=== PATIENT | male | born 1940 | race African-American/Black ===

== ENCOUNTER 2024-10-28 00:06 | Emergency (ER) | payer OTHER ==
[2024-10-28 00:32] VITALS: BP 106/67; PULSE 90; RESP 18; BMI 24.6
[2024-10-28] MEDS ORDERED: LIDOCAINE 5% TOPICAL PATCH ONE (02:22)
[2024-10-28] MEDS: LIDOCAINE 5% TOPICAL PATCH TP ONE (02:31)
[2024-10-28] MEDS ORDERED: LIDOCAINE PATCH REMOVAL MC ONE (14:00)
== END 2024-10-28 04:06 | disposition home or self-care (01) ==
LOC: JER 00:06
DX: M54.2 Cervicalgia (principal); W06.XXXA Fall from bed, initial encounter
CPT/HCPCS: 70450-TC; 72125-TC; 99284-25

== ENCOUNTER 2024-11-04 14:09 | Inpatient (IN) | payer OTHER ==
[2024-11-04 16:35] LABS: EPI CELLS 2 /uL (0-25.1); HYALINE CASTS 0 /uL (0-3.1); PH,URINE 5.5 (5.0-8.0); URINE APPEARANCE CLEAR; URINE BACTERIA >9,000 /uL (0-1359); URINE BILIRUBIN NEGATIVE (NEGATIVE); URINE COLOR YELLOW; URINE GLUCOSE (UA) NEGATIVE (NEGATIVE); URINE KETONE TRACE (NEGATIVE); URINE LEUK ESTERASE 1+ (NEGATIVE); URINE NITRITE NEGATIVE (NEGATIVE); URINE PROTEIN TRACE (NEGATIVE); URINE RBC 5 /uL (0-23.9); URINE UROBILINOGEN 0.2 mg/dL (0.2-1.0); URINE WBC 68 /uL (0-25.8)
[2024-11-04 17:18] LABS: POTASSIUM 5.2 mmol/L (3.5-5.1)
[2024-11-04 17:19] LABS: BLOOD UREA NITROGEN 27.9 mg/dL (7-18); CALCIUM 10.2 mg/dL (8.5-10.1)
[2024-11-04 17:20] LABS: ALBUMIN 2.7 g/dl (3.4-5.0)
[2024-11-04 17:22] LABS: CREATININE 1.1 mg/dL (0.55-1.3)
[2024-11-04 17:24] LABS: BILIRUBIN,TOTAL 0.4 mg/dL (0.2-1); TOT PROT 7.3 g/dl (6.4-8.2)
[2024-11-04] MEDS ORDERED: ACETAMINOPHEN INJECTION 100 ML ONE (17:28)
[2024-11-04] MEDS ORDERED: PIPERACILLIN/TAZOB 3.375 GM 3.375 GM/50 ML BAG IVPB ONE (17:28)
[2024-11-04 17:32] LABS: HEMATOCRIT 30.1 % (40.1-51.0); HEMOGLOBIN 9.2 g/dL (13.7-17.5); MCHC 30.6 g/dl (32.3-36.5); MEAN CELL VOLUME 77.6 fl (79.0-92.2); MEAN PLT VOLUME 8.9 fl (9.4-12.4); PLATELET COUNT 382 x10^3/uL (163-337); RDW 19.3 % (12.6-16.6)
[2024-11-04] MEDS: ACETAMINOPHEN 1000 MG/100 ML BAG IVPB ONE (17:33)
[2024-11-04] MEDS: SODIUM CHLORIDE 0.9% 500 ML INFUS.BAG IV ONE (17:33)
[2024-11-04] MEDS ORDERED: METOPROLOL TARTRATE 5 MG/5 ML VIAL ONE (17:36)
[2024-11-04] MEDS: PIPERACILLIN/TAZOB 3.375 GM 3.375 GM in DEXTROSE 5%-WATER - 50 ML IVPB ONE (17:43)
[2024-11-04] MEDS: METOPROLOL TARTRATE 5 MG/5 ML VIAL IVPUSH ONE (17:43)
[2024-11-04 18:04] LABS: MAGNESIUM 1.4 mg/dL (1.8-2.4)
[2024-11-04 18:09] LABS: PHOSPHOROUS 3.4 mg/dL (2.5-4.9)
[2024-11-04] MEDS ORDERED: metoPROLOL SUCCINATE 25 MG TAB.SR.24H (FP) PO ONE (18:10)
[2024-11-04] MEDS: metoPROLOL SUCCINATE 25 MG TAB.SR.24H (FP) PO ONE (18:14)
[2024-11-04] MEDS ORDERED: MAGNESIUM SULFATE IN WATER 2 GM/50 ML IVPB IVPB ONE (18:48)
[2024-11-04] MEDS: MAGNESIUM SULFATE IN WATER 2 GM/50 ML IVPB IVPB ONE (18:54)
[2024-11-04] MEDS ORDERED: VANCOMYCIN 1 GM PREMIX (F) 1 GM/200 ML BAG ONE (19:08)
[2024-11-04] MEDS: VANCOMYCIN 1,000 MG in DEXTROSE 5%-WATER - 250 ML IVPB ONE (20:07)
[2024-11-04] MEDS ORDERED: MEROPENEM 1 GM VIAL (RESTRICTED TO ID) IVPB ONE (20:58)
[2024-11-04] MEDS: MEROPENEM 1 GM in DEXTROSE 5%-WATER 100 ML IVPB ONE (21:30)
[2024-11-04] MEDS ORDERED: ARTIFICIAL TEARS OPHTHALMIC DROPS OU PRN (22:33)
[2024-11-04] MEDS ORDERED: ACETAMINOPHEN 325 MG TABLET (FP) PO PRN ×2 (22:33→22:54)
[2024-11-04 22:54] LABS: INR 1.39 (0.83-1.09); PROTHROMBIN TIME (PATIENT) 15.1 SEC (9.7-13.0)
[2024-11-05] MEDS: ENOXAPARIN NA (PORCINE) 80 MG/0.8 ML DISP.SYRIN SQ ONE (01:03)
[2024-11-05 01:47] VITALS: BMI 22.1
[2024-11-05] MEDS: LEVOTHYROXINE NA 25 MCG TABLET (FP) PO SCH (06:27)
[2024-11-05] MEDS: GLIMEPIRIDE 2 MG TABLET PO SCH (06:27)
[2024-11-05 07:27] LABS: ABSOLUTE IMMATURE GRANULOCYTES 0.03 x10^3/uL (0.0-0.031); BASOPHILS # 0.06 x10^3/uL (0.01-0.08); EOSINOPHIL % 5.1 % (0.8-7.0); EOSINOPHILS # 0.33 x10^3/uL (0.04-0.54); HEMATOCRIT 30.7 % (40.1-51.0); HEMOGLOBIN 8.9 g/dL (13.7-17.5); MEAN CELL VOLUME 78.5 fl (79.0-92.2); MEAN PLT VOLUME 9.5 fl (9.4-12.4); MONOCYTE % 7.7 % (5.3-12.2); PLATELET COUNT 353 x10^3/uL (163-337)
[2024-11-05 07:49] LABS: ALBUMIN 2.6 g/dl (3.4-5.0); CALCIUM 9.5 mg/dL (8.5-10.1)
[2024-11-05 07:50] LABS: BLOOD UREA NITROGEN 23.6 mg/dL (7-18); MAGNESIUM 1.6 mg/dL (1.8-2.4)
[2024-11-05 07:53] LABS: CREATININE 0.8 mg/dL (0.55-1.3); PHOSPHOROUS 3.6 mg/dL (2.5-4.9)
[2024-11-05 07:54] LABS: BILIRUBIN,TOTAL 0.5 mg/dL (0.2-1); TOT PROT 6.7 g/dl (6.4-8.2)
[2024-11-05] MEDS: ERTAPENEM SODIUM 1 GM in SODIUM CHLORIDE 50 ML IVPB SCH (09:14)
[2024-11-05] MEDS: CHOLECALCIFEROL (VIT D3) 1,000 UNIT (25 MCG) TABLET PO SCH (09:15)
[2024-11-05] MEDS: POLYETHYLENE GLYCOL (HEALTHYLAX) 3350 17 GM PACKET PO SCH (09:15)
[2024-11-05] MEDS: ENOXAPARIN NA (PORCINE) 80 MG/0.8 ML DISP.SYRIN SQ SCH (09:15)
[2024-11-05] MEDS: ASCORBIC ACID 500 MG TABLET (FP) PO SCH (09:15)
[2024-11-05] MEDS: FERROUS SO4 325 MG TABLET (FP) PO SCH (09:15)
[2024-11-05] MEDS: PANTOPRAZOLE 40 MG TABLET PO SCH (09:15)
[2024-11-05] MEDS: ESCITALOPRAM OXALATE 10 MG TABLET PO SCH (09:15)
[2024-11-05] MEDS: METOPROLOL TARTRATE 50 MG TABLET (FP) PO SCH ×2 (09:15→13:55)
[2024-11-05] MEDS ORDERED: PATIENT'S OWN MEDICATION (NON-FORMULARY) (Aa/Hydrolyzed Collagen, Whey [Lps 15-30 Liquid] PO SCH (10:00)
[2024-11-05] MEDS ORDERED: LISINOPRIL 20 MG TABLET PO SCH (10:00)
[2024-11-05] MEDS ORDERED: ENOXAPARIN NA (PORCINE) 40 MG/0.4 ML DISP.SYRIN SQ SCH (10:00)
[2024-11-05] MEDS: MAGNESIUM SULF 50% (8.12 MEQ/2 ML-1 GM VIAL) IVPB ONE (10:01)
[2024-11-05] MEDS ORDERED: INSULIN ASPART SLIDING SCALE (NOVOLOG) 1 VIAL SQ SCH (11:00)
[2024-11-05 15:07] VITALS: TEMP 97.7
[2024-11-05 19:06] VITALS: BP 119/98; PULSE 101
[2024-11-05 21:39] VITALS: RESP 17
[2024-11-05] MEDS ORDERED: SENNOSIDES 8.6MG TABLET (FP) PO SCH (22:00)
[2024-11-05] MEDS ORDERED: LATANOPROST 0.005% OPHTH SOLN 2.5ML BOTTLE OU SCH (22:00)
[2024-11-05] MEDS ORDERED: ATORVASTATIN CA 80 MG TABLET (FP) PO SCH (22:00)
[2024-11-05] MEDS ORDERED: TAMSULOSIN HCL 0.4 MG CAP PO SCH (22:00)
[2024-11-05] MEDS ORDERED: AMIODARONE HCL 200 MG TABLET PO SCH (22:00)
[2024-11-05] MEDS ORDERED: metoPROLOL SUCCINATE 25 MG TAB.SR.24H (FP) PO SCH (22:00)
== END 2024-11-05 21:10 | disposition short-term general hospital (02) | DRG 698 ==
LOC: JER 14:09 → JERBED 16:15 → J4S 11-05 00:19
PROVIDERS: ADMIT Internal Medicine
DX: T83.518A Infection and inflammatory reaction due to other urinary catheter, initial encounter (principal); J18.9 Pneumonia, unspecified organism; N39.0 Urinary tract infection, site not specified; I50.22 Chronic systolic (congestive) heart failure; I47.10 Supraventricular tachycardia, unspecified; Z16.12 Extended spectrum beta lactamase (ESBL) resistance; E11.9 Type 2 diabetes mellitus without complications; I10 Essential (primary) hypertension; I11.0 Hypertensive heart disease with heart failure; E83.42 Hypomagnesemia; E87.5 Hyperkalemia; C10.9 Malignant neoplasm of oropharynx, unspecified; Y83.8 Other surgical procedures as the cause of abnormal reaction of the patient, or of later complication, without mention of misadventure at the time of the procedure
CPT/HCPCS: 36415; 71045-TC-FY; 71250-TC; 80053; 81003; 82962; 83735; 84100; 84484; 85025; 85027; 85610; 86850; 86900; 86901; 87086; 87186; 93005; 93010; 99291; J0131